=== PATIENT | male | born 1950 | race Caucasian/White ===

== ENCOUNTER 2019-10-28 10:49 | Emergency (ER) | payer OTHER, MEDICARE ==
[~2019-10-28] VITALS: Ht 167.6 cm; Wt 68.0 kg
[2019-10-28] MEDS ORDERED: GABA400 PO (11:08)
[2019-10-28] MEDS ORDERED: ATOR20 PO (11:08)
[2019-10-28] MEDS ORDERED: FERSU300 (11:08)
[2019-10-28] MEDS ORDERED: FINA5 PO (11:08)
[2019-10-28] MEDS ORDERED: GLIP5 PO (11:09)
[2019-10-28] MEDS ORDERED: LOSA50 PO (11:09)
[2019-10-28] MEDS ORDERED: OMEP20ER PO (11:10)
[2019-10-28] MEDS ORDERED: TAMS.4ER PO (11:10)
[2019-10-28] MEDS ORDERED: Nortrel1 EAC2 PO (11:10)
[2019-10-28 11:19] LABS: BASOPHILS ABSOLUTE AUTO 0.06 K/mm3 (0.00-0.23); BASOPHILS PERCENT AUTO 1 % (0-2); EOSINOPHILS ABSOLUTE AUTO 0.48 K/mm3 (0.00-0.68); EOSINOPHILS PERCENT AUTO 4 % (0-6); Hematocrit 43.6 % (37.0-53.0); Hemoglobin 14.5 g/dL (13.5-17.5); IMMATURE GRAN ABSOLUTE AUTO 0.08 K/mm3 (0.00-0.10); IMMATURE GRAN PERCENT AUTO 1 % (0-1); LYMPHOCYTES ABSOLUTE AUTO 2.88 K/mm3 (0.84-5.20); LYMPHOCYTES PERCENT AUTO 24 % (21-46); MONOCYTES ABSOLUTE AUTO 1.06 K/mm3 (0.16-1.47); MONOCYTES PERCENT AUTO 9 % (4-13); Mean Corpuscular HGB 29.7 pg (26.0-34.0); Mean Corpuscular HGB Conc 33.3 g/dL (31.5-36.5); Mean Corpuscular Volume 89 fL (80-100); Mean Platelet Volume 10.2 fL (9.1-12.4); NEUTROPHILS ABSOLUTE AUTO 7.42 K/mm3 (1.96-9.15); NEUTROPHILS PERCENT AUTO 62 % (41-73); Platelet Count 269 K/mm3 (150-400); RDW Standard Deviation 39.1 fL (35.1-46.3); Red Blood Cell Count 4.89 M/mm3 (4.30-5.90); White Blood Cell Count 11.98 K/mm3 (4.00-11.30)
[2019-10-28 11:31] LABS: Alanine Aminotransfer (ALT/SGP 22 U/L (12-78); Albumin, Blood 3.7 g/dL (3.4-5.0); Albumin/Globulin Ratio 1.2 (0.8-1.8); Alk Phos 74 U/L (50-136); Anion Gap 6 mmol/L (6-16); Aspartate Aminotrans (AST/SGOT 9 U/L (12-37); Bilirubin, Total 0.5 mg/dL (0.1-1.0); Blood Urea Nitrogen 16 mg/dL (8-24); Bun/Creatinine Ratio 18.2 (12.0-20.0); CO2, Blood 27 mmol/L (21-32); Chloride, Blood 98 mmol/L (98-108); Creatinine, Blood 0.88 mg/dL (0.60-1.20); Glomerular Filtration Rate >60 (60-); Glucose, Blood 373 mg/dL (70-99); Potassium, Blood 3.8 mmol/L (3.5-5.5); Sodium, Blood 131 mmol/L (136-145); Total Protein, Blood 6.7 g/dL (6.4-8.2)
== END 2019-10-28 13:01 | disposition home or self-care (01) ==
LOC: ER 10:49
PROVIDERS: Emergency Medicine
DX: E11.65 Type 2 diabetes mellitus with hyperglycemia (principal); M25.552 Pain in left hip; Z86.73 Personal history of transient ischemic attack (TIA), and cerebral infarction without residual deficits; Z91.14 Patient's other noncompliance with medication regimen
CPT/HCPCS: 70450; 73502; 80053; 82947; 85025; 93005; 93010; 99285-25

== ENCOUNTER 2021-10-06 13:17 | Observation (INO) | payer OTHER ==
[~2021-10-06] VITALS: Ht 170.2 cm; Wt 65.7 kg
[~2021-10-06 13:17] MED LIST: ATOR20 PO; FERSU300; FINA5 PO; GABA400 PO; GLIP5 PO; LOSA50 PO; Nortrel1 EAC2 PO; OMEP20ER PO; TAMS.4ER PO
[2021-10-06 14:23] LABS: Hematocrit 29.6 % (37.0-53.0); Hemoglobin 10.2 g/dL (13.5-17.5); Mean Corpuscular HGB 29.8 pg (26.0-34.0); Mean Corpuscular HGB Conc 34.5 g/dL (31.5-36.5); Mean Corpuscular Volume 87 fL (80-100); Mean Platelet Volume 10.5 fL (9.1-12.4); Platelet Count 342 K/mm3 (150-400); RDW Coefficient Variation 12.5 % (11.7-14.2); RDW Standard Deviation 39.8 fL (35.1-46.3); Red Blood Cell Count 3.42 M/mm3 (4.30-5.90); White Blood Cell Count 22.44 K/mm3 (4.00-11.30)
[2021-10-06 14:49] LABS: Albumin, Blood 3.7 g/dL (3.4-5.0); Bilirubin, Total 0.7 mg/dL (0.1-1.0); Bun/Creatinine Ratio 23.6 (12.0-20.0); Calcium, Blood 8.8 mg/dL (8.5-10.1); Creatinine, Blood 1.27 mg/dL (0.60-1.20); Globulin, Blood 3.8 g/dL (2.2-4.0); Total Protein, Blood 7.5 g/dL (6.4-8.2)
[2021-10-06 15:11] LABS: BAND PERCENT MAN 2 % (0-8); BASOPHILS ABSOLUTE MAN 0.22 K/mm3 (0.00-0.23); BASOPHILS PERCENT MAN 1 % (0-2); EOSINOPHILS PERCENT MAN 0 % (0-6); LYMPHOCYTES % ATYPICAL MANUAL 1 % (0-0); LYMPHOCYTES ABSOLUTE MAN 1.79 K/mm3 (0.84-5.20); LYMPHOCYTES PERCENT MAN 7 % (21-46); MONOCYTES ABSOLUTE MAN 2.01 K/mm3 (0.16-1.47); MONOCYTES PERCENT MAN 9 % (4-13); SEG NEUTROPHILS PERCENT MAN 80 % (41-73); TOTAL CELLS COUNTED 100
--- NOTE | 2021-10-06 19:22 | NUR ---
ADMIT NOTE PATIENT NEW ADMIT TO UNIT FROM ER. R HUMERUS FRACTURE. PATIENT FELL AT HOME 3 DAYS AGO. DROWSY ON ARRIVAL TO ROOM. RIGHT ARM IN SLING. BRUISED FROM SHOULDER TO ELBOW. MEDICATED FOR PAIN WITH IV TORADOL. LR FLUID RUNNING AT 125 HR. PROVIDED WATER AND TOOTHBRUSH. PARTNER PRESENT IN ROOM. PER DR GOODE PATIENT CAN EAT AND NO SURGERY IS PLANNED AT THIS TIME.
--- NOTE | 2021-10-07 04:42 | NUR ---
SHIFT SUMMARY NO ACUTE CHANGES TO REPORT THIS SHIFT. PT CHANGE OF SHIFT ADMIT FOR GLF THAT RESULTED IN A RIGHT HUMERUS FRACTURE. PT ARM CURRENTLY IN SLING, THERE IS SOME BRUSING TO THE UPPER PORTION OF ARM. PT IS NOT COMPLAINING OF N/T, PT DENIES PAIN WHEN ASKED. PT A/OX4, SLEEPY BUT AWAKES EASILY. HEAD CT ORDERED THIS SHIFT AND HAS BEEN PERFORMED. EKG DONE. DR. GOODE NOT RECOMMENDING SURGERY AT THIS TIME. VITALS STABLE. ADMISSION COMPLETE ASIDE FROM [facility], THEIR [facility] WAS DOWN YESTERDAY AND THEY WERE UNABLE TO SEND RECORDS. WILL NOTIFY DAYSHIFT RN FOR FOLLOW UP. BED IN LOWEST POSITION, CALL LIGHT WITHIN REACH.
--- NOTE | 2021-10-07 04:58 | NUR ---
FALL AROUND 0450 THIS AM PT HAD A GROUND LEVEL FALL WHILE AMBULATING TO THE BATHROOM IN AN ATTEMPT TO VOID. I WAS ASSISTING PT TO THE BATHROOM AND WAS STANDING AT HIS SIDE. PT BEGAN TO GET WOBBLY, BEFORE I COULD ASSIST HIM TO SIT DOWN PT LEGS GAVE OUT AND HE FELL ON HIS BOTTOM. IT APPEARED THAT PT MAY HAVE HAD A SYNCOPAL EPISODE. I WAS UNABLE TO FULLY STOP THE FALL BUT GRABBED AHOLD OF PT GOWN HE WAS FALLING TO TRY AND SOFTEN THE FALL. PT LANDED ON HIS BOTTOM AND WAS SITTING UPWARDS AGAINST THE SHOWER. PT DID NOT HIT HIS HEAD OR FURTHER INJURE HIS RIGHT ARM IN SLING. THERE ARE NO SKIN INJURIES ASSESSED. AFTER FALL PT REPORTED TO ME THAT HE HAS HAD THIS HAPPEN BEFORE AT HOME. PT DID NOT REPORT A HX OF SYNCOPE TO THIS RN AND IT IS NOT MENTIONED IN ANY OTHER NOTES IN CHART. PRIOR TO FALL PT HAD AMBULATED TO A WHEELCHAIR TO GO TO IMAGING WITHOUT DIFFICULTY AND WAS A SBA. VITALS OBTAINED AFTER FALL WERE STABLE. PT ASSISTED UP WITH WALKER AND GAIT BELT BACK TO BED. PT CONTINUED TO REPORT DIZZINESS BUT OTHERWISE HAD NO OTHER COMPLAINTS. MARKET DEVELOPER ANG AND NURSING TOUR OPERATOR EVELYN MADE AWARE OF OF FALL. DR. NCIOLAS CALLED AND NOTIFIED OF FALL WITH NO ADDITIONAL ORDERS GIVEN. HE STATES JUST TO WATCH FOR NOW. PT IS RESTING IN BED AT THIS TIME WITH NO COMPLAINTS. WILL CONTINUE TO MONITOR.
[2021-10-07 05:21] LABS: BASOPHILS ABSOLUTE AUTO 0.04 K/mm3 (0.00-0.23); BASOPHILS PERCENT AUTO 0 % (0-2); EOSINOPHILS PERCENT AUTO 1 % (0-6); Hematocrit 25.8 % (37.0-53.0); Hemoglobin 8.6 g/dL (13.5-17.5); IMMATURE GRAN ABSOLUTE AUTO 0.07 K/mm3 (0.00-0.10); IMMATURE GRAN PERCENT AUTO 1 % (0-1); LYMPHOCYTES ABSOLUTE AUTO 2.99 K/mm3 (0.84-5.20); LYMPHOCYTES PERCENT AUTO 25 % (21-46); MONOCYTES ABSOLUTE AUTO 1.15 K/mm3 (0.16-1.47); MONOCYTES PERCENT AUTO 10 % (4-13); Mean Corpuscular HGB 29.4 pg (26.0-34.0); Mean Corpuscular HGB Conc 33.3 g/dL (31.5-36.5); Mean Corpuscular Volume 88 fL (80-100); Mean Platelet Volume 10.3 fL (9.1-12.4); NEUTROPHILS ABSOLUTE AUTO 7.62 K/mm3 (1.96-9.15); NEUTROPHILS PERCENT AUTO 64 % (41-73); Platelet Count 317 K/mm3 (150-400); RDW Coefficient Variation 12.4 % (11.7-14.2); RDW Standard Deviation 40.3 fL (35.1-46.3); Red Blood Cell Count 2.93 M/mm3 (4.30-5.90); White Blood Cell Count 11.97 K/mm3 (4.00-11.30)
[2021-10-07 05:53] LABS: Bilirubin, Total 0.8 mg/dL (0.1-1.0); Bun/Creatinine Ratio 27.2 (12.0-20.0); Calcium, Blood 8.5 mg/dL (8.5-10.1); Creatinine, Blood 1.25 mg/dL (0.60-1.20); Potassium, Blood 3.9 mmol/L (3.5-5.5)
--- NOTE | 2021-10-07 07:18 | NUR ---
BLADDER SCAN PT HAD OVER 600 MLS IN HIS BLADDER THIS AM. PT HAD NOT VOIDED ALL NIGHT, PT ATTEMPTED TO VOID THIS AM WITHOUT SUCCESS STATING THAT HE DID NOT HAVE THE URGE. DR. TSANG CALLED AND NOTIFIED. ORDER FOR STRAIGHT CATH AND BLADDER SCAN AFTER 8 HOURS. PT STRAIGHT CATH BY CONCRETE CONVEYOR OPERATOR, CATH IS DRAINING AT THIS TIME.
[2021-10-07 08:18] LABS: Source, Urine Voided
[2021-10-07 08:24] LABS: Appearance, Urine Clear (Clear); Bilirubin, Urine Neg (Neg); Blood, Urine Neg (Neg); Color, Urine Yellow (P-Yellow); Glucose Qualitative, Urine 4+ (Neg); Ketones, Urine 3+ (Neg); Leukocyte Esterase, Urine Neg (Neg); Nitrite, Urine Neg (Neg); Protein, Urine 2+ (Neg); Urobilinogen, Urine NORM (Normal)
[2021-10-07 08:36] LABS: Bacteria Rare /hpf; Red Blood Cells, Urine 0-2 /hpf (0-2); Squamous Epithelial Cells Rare /hpf (Few); White Blood Cells, Urine 0-2 /hpf (0-5)
--- NOTE | 2021-10-07 11:37 | NUR ---
[facility] CONTACT[facility]POR[facility] AND HOME MEDICATION LIST.
[2021-10-07] MEDS ORDERED: B-12500 MC2 PO (11:44)
[2021-10-07] MEDS ORDERED: METF500 PO (11:48)
[2021-10-07 13:07] LABS: Hematocrit 27.7 % (37.0-53.0); Hemoglobin 9.3 g/dL (13.5-17.5)
--- NOTE | 2021-10-07 17:40 | NUR ---
SHIFT SUMMARY PT REMAINS IN THE HOSPITAL FOR MORE PHYSICAL THERAPY AND R/T JAEL. PT HAS BEEN OOB WITH THERAPY. PT IS HOPING FOR DC HOME TOMORROW. PAIN MANAGED WITH TYLENOL. PT ABLE TO VOID THIS AFTERNOON. UPDATED HOME MED REC [facility] LIST FROM [facility], PT REPORTS SOME MEDICATIONS ARE MISSING FROM THAT LIST. TOMI OCONNOR NOTIFIED OF MISSING MEDICATIONS, PLAN TO CONTACT PT'S REGARDING HOME MED LIST.
[2021-10-07] MEDS ORDERED: TAMS.4ER PO (17:51)
[2021-10-07] MEDS ORDERED: NORTRIPTYLINE H PO (17:52)
[2021-10-07] MEDS ORDERED: INSULANI SC (17:53)
--- NOTE | 2021-10-08 01:33 | NUR ---
CHECKED PT FOR SURGICAL NURSE IN CARE OF PT AND CALLED DR TSANG REGARDING PT C/O INCREASED PAIN R SHOULDER,LARGELY NOTED HEMATOMA-PT ON LOVENOX AND APPEARS THERE HAS BEEN BLEEDING INTO SHOULDER AREA.PT HAS C/O TINGLING TO R FINGERS,ABLE TO WIGGLE FINGERS.R RADIAL PULSE STRONG WITH REFILL WNL.TORADOL PREVIOUSLY ORDERED FOR PAIN.HOWEVER,PT HAS SLIGHTLY BUMPED CREATININE WITH JAEL,GFR WNL.PT CARE NURSE NOTED THAT PT RECEIVED BOTH DILAUDID IM AND IV IN ER AND DID NOT TOLERATE WELL.NOTES MENTION TRYING TO AVOID NARGOTICS,HOWEVER PT HAS CONTINUIED C/O SIGNIFICANT PAIN AND WAS GIVEN SUBLIMAZE PER NEW ORDER AND FOR BRIEF PERIOD ONLY REPORTED EFFCTIVE.DR TSANG ORDERED NORCO AND INSTRUCTED ME TO NOTIFY ORTHO.PT REPOSITIONED AND HOB UP. SLING ADJUSTED. SHOULDER ICED.
--- NOTE | 2021-10-08 02:03 | NUR ---
I CALLED DR GOODE AND ADVISED OF ASSESSMENT AND MEDS GIVEN.SEE ORDERS RECEIVED .
--- NOTE | 2021-10-08 03:13 | NUR ---
INCREASED PAIN R SHOULDER PT BEGAN COMPLAINING OF INCREASED PAIN IN RIGHT SHOULDER CLOSE TO 2300 WELL NEW COMPLAINTS OF TINGLING IN RIGHT HAND. RADIAL PULSE IS STRONG, HAND IS WARM AND PT ABLE TO WIGGLE FINGERS. DR. NICOLAS CALLED AND NOTIFIED OF PT NEW COMPLAINTS. RECEIVED ORDER FOR IV FENTANYL WHICH DID VERY LITTLE TO RELIEVE PT PAIN. ICE ALSO APPLIED TO HELP ALLEVIATE PAIN WITH VERY LITTLE EFFECT. DR. TSANG CALLED AND NOTIFIED THAT FENTANYL AND ICE HAS BEEN INEFFECTIVE FOR PAIN CONTROL. DR. TSANG RECOMMENDED THAT WE CALL ORTHO PLATE GRAINER APPRENTICE FOR FURTHER MANAGEMENT OF PT SYMPTOMS. DR. GOODE CALLED AND NOTIFIED OF PT INCREASED PAIN IN SHOULDER WELL NEW COMPLAINT OF TINGLING. NOTIFIED HIM THAT PAIN MEDICATIONS PER EMAR HAVE BEEN INEFFECTIVE FOR PAIN CONTROL. HE ORDERED FOR US TO REMOVE RIGHT ARM SLING, AND STATES THAT IS IS OK FOR PT TO SLIGHTLY EXTEND RIGHT ARM TO HELP ALLEVIATE PAIN. DR. GOODE STATES OK TO LEAVE SLING OFF WHILE IN BED, AND TO APPLY SLING WHEN UP AND AMBULATING. OXYCODONE ORDERED AND NORCO DC'D FOR BETTER PAIN CONTROL. DR. GOODE DID NOT GIVE ANY ADDITIONAL ORDERS, AND WILL REEVALUATE PT LATER. AFTER REMOVING SLING, AND MEDICATING WITH NORCO, PT NOW REPORTS THAT PAIN HAS SIGNIFICANTLY IMPROVED FROM A 9/1O TO 3/1O. ICE REMAINS IN PLACE TO RIGHT SHOULDER PER DR. GOODE INSTRUCTIONS. PT ATTEMPTING TO REST AT THIS TIME. WILL CONTINUE TO MONITOR.
[2021-10-08 04:30] LABS: Hematocrit 23.5 % (37.0-53.0); Hemoglobin 7.9 g/dL (13.5-17.5); Mean Corpuscular HGB 29.4 pg (26.0-34.0); Mean Corpuscular HGB Conc 33.6 g/dL (31.5-36.5); Mean Corpuscular Volume 87 fL (80-100); Mean Platelet Volume 10.4 fL (9.1-12.4); Platelet Count 356 K/mm3 (150-400); RDW Coefficient Variation 12.2 % (11.7-14.2); RDW Standard Deviation 39.3 fL (35.1-46.3); Red Blood Cell Count 2.69 M/mm3 (4.30-5.90); White Blood Cell Count 18.36 K/mm3 (4.00-11.30)
[2021-10-08 04:49] LABS: Albumin, Blood 3.2 g/dL (3.4-5.0); Anion Gap 8 mmol/L (6-16); Blood Urea Nitrogen 26 mg/dL (8-24); Bun/Creatinine Ratio 35.7 (12.0-20.0); CO2, Blood 28 mmol/L (21-32); Calcium, Blood 8.8 mg/dL (8.5-10.1); Chloride, Blood 97 mmol/L (98-108); Creatinine, Blood 0.73 mg/dL (0.60-1.20); Glomerular Filtration Rate 97 (60-); Glucose, Blood 289 mg/dL (70-99); Phosphorus, Blood 3.2 mg/dL (2.5-4.9); Potassium, Blood 4.5 mmol/L (3.5-5.5); Sodium, Blood 133 mmol/L (136-145)
--- NOTE | 2021-10-08 05:31 | NUR ---
SHIFT SUMMARY PT HAS HAD A ROUGH NIGHT, PAIN HAS INCREASED IN HIS RIGHT ARM OVERNIGHT, HE REPORTS THAT PAIN IS EVEN WORSE THAN BEFORE HE CAME IN. DR. GOODE AND HOSPITALIST HAVE BEEN MADE AWARE OF PAIN, AND MEDICATIONS FOR PAIN HAVE BEEN ADJUSTED ACCORDINGLY. PLEASE SEE PRIOR NURSES NOTE. BRUSING TO RIGHT SHOULDER UNCHANGED, SENSATION PRESENT TO RIGHT HAND AND PT ABLE TO WIGGLE FINGERS. AT THIS TIME, PAIN IS MANAGED AND HE HAS BEEN ABLE TO GET SOME SLEEP THIS AM. PT HAS BEEN VOIDING THIS SHIFT WITHOUT DIFFICULTY. IVF HAVE INFUSED. SLING TO RIGHT ARM HAS BEEN REMOVED PER DR. GOODE AND ICE PACK IN PLACE. VITALS ARE STABLE. BED IN LOWEST POSITION, CALL LIGHT WITHIN REACH.
--- NOTE | 2021-10-08 06:35 | NUR ---
CHANGE IN STATUS R ARM PT HAD BEEN A/OX4 T/O SHIFT AND SHOWED NO SIGNS OF CONFUSION. WHEN I ENTERED ROOM TO CHECK ON PT AROUND 0620 HE WAS ORIENED TO LOCATION AND SELF HOWEVER INAPPROPRIATE TO SITUATION GETTING OUT OF BED STATING SAID HE COULD GO HOME AND WAS ATTEMPTING TO GET DRESSED TO LEAVE. PT APPEARING UNSTEADY ON FEET I IMMEDIATLEY WENT TO PT SIDE. I WAS UNABLE TO CONVIENCE PT TO SIT BACK ON BED. PT BEGAN TO WOBBLE, I AVERTED POTENTIAL FALL BY LOWERING PT TO FLOOR, AND SUMMONED ADDITIONAL STAFF TO ASSIST PT BACK TO BED SAFELY. PT NOW RESTING IN BED. SEE VITALS, ORTHOSTATIC BP NOTED. RIGHT ARM WITH INCREASED BRUSING AND APPEARS EXPANDING AND TIGHTER, DR. GOODE MADE AWARE EARLIER IN THE SHIFT THAT CONDTION OF PT ARM HAD BEEN WORSENING. RADIAL PULSE PRESENT, STRONG. PT NOW DENIES N/T. NURSING CHAIR PAD MAKER TORI BERNAL NOTIFIED OF INCIDENT, AND MANAGER INVESTMENT ANG VARGAS ALSO NOTIFIED. DR. GOODE NOTIFED OF APPEARANCE OF ARM THIS AM, MORNING LABS H&H 7.9 AND HCT 23.5. ALSO NOTIFIED OF HIM OF PT CONFUSION TO SITUATION. ORDERED FOR CYNTHIA WRAP TO ARM AND SHOULDER. DR. GOODE STATES THAT HE WOULD BE IN THIS AM TO ROUND ON PT. BED ALARM IN PLACE, THREE SIDE RAILS IN PLACE. ANOTHER STAFF NURSE AT BEDSIDE CURRENTLY MONITORING PT.
--- NOTE | 2021-10-08 07:23 | NUR ---
CYNTHIA WRAP APPLIED PER DR. GOODE'S REQUEST TO R UPPER ARM AND SHOULDER. R ARM IS SWOLLEN AND BRUISED. BRUSING IS PURPLE/YELLOW. RADIAL PULSE IS STRONG. PT ABLE TO WIGGLE HIS FINGERS.
[2021-10-08] MEDS ORDERED: Percocet 5-3251 EACH PO (10:25)
[2021-10-08 13:03] LABS: BASOPHILS ABSOLUTE AUTO 0.04 K/mm3 (0.00-0.23); BASOPHILS PERCENT AUTO 0 % (0-2); EOSINOPHILS ABSOLUTE AUTO 0.01 K/mm3 (0.00-0.68); EOSINOPHILS PERCENT AUTO 0 % (0-6); Hematocrit 22.4 % (37.0-53.0); Hemoglobin 7.5 g/dL (13.5-17.5); IMMATURE GRAN ABSOLUTE AUTO 0.09 K/mm3 (0.00-0.10); IMMATURE GRAN PERCENT AUTO 1 % (0-1); LYMPHOCYTES ABSOLUTE AUTO 2.07 K/mm3 (0.84-5.20); LYMPHOCYTES PERCENT AUTO 16 % (21-46); MONOCYTES ABSOLUTE AUTO 1.01 K/mm3 (0.16-1.47); MONOCYTES PERCENT AUTO 8 % (4-13); Mean Corpuscular HGB 29.4 pg (26.0-34.0); Mean Corpuscular HGB Conc 33.5 g/dL (31.5-36.5); Mean Corpuscular Volume 88 fL (80-100); Mean Platelet Volume 10.1 fL (9.1-12.4); NEUTROPHILS ABSOLUTE AUTO 10.06 K/mm3 (1.96-9.15); NEUTROPHILS PERCENT AUTO 76 % (41-73); Platelet Count 343 K/mm3 (150-400); RDW Coefficient Variation 12.3 % (11.7-14.2); RDW Standard Deviation 39.8 fL (35.1-46.3); Red Blood Cell Count 2.55 M/mm3 (4.30-5.90); White Blood Cell Count 13.28 K/mm3 (4.00-11.30)
[2021-10-08 14:55] LABS: IMMATURE RETIC FRACTION 12.4 % (2.3-16.0); RETIC HGB EQUIVALENT 31.3 pg (28.20-36.60); RETICULOCYTE COUNT PERCENT 2.46 % (0.50-2.50)
[2021-10-08 16:01] LABS: Percent Saturation 7.5 % (20.0-50.0)
--- NOTE | 2021-10-08 18:26 | NUR ---
SHIFT SUMMARY PT REMAINS IN THE HOSPITAL R/T APPARENT NEAR SYNCOPE WHEN OOB. PT SAT UP TO THE EDGE OF THE BED THIS AM AND WAS UNABLE TO HOLD HIMSELF IN A SITTING POSTION WITHOUT ASSISTANCE. SWELLING APPEARS INCREASED TO PT'S LOWER ARM AND THERE APPEARS TO BE SOME DARK PURPLE BRUISING TO THE UPPER ARM/ARMPIT AREA. PT HAS EXPRESSED FRUSTRATION ABOUT REMIANING IN THE HOSPITAL BUT HAS AGREED TO REMAIN OVERNIGHT AFTER DR. AUGUSTIN SPOKE WITH THE PT AND HIS . PT IS TOLERATING PO, DRINKING AND ABLE TO VOID. MONITORING H&H. PT REQUESTED A SHOWER TODAY; HE WAS EDUCATED THAT THIS IS UNSAFE SINCE HE HAS BEEN UNABLE TO SIT MUCH LESS STAND. PT HAS BEEN OFFERED A BEDBATH AND DECLINED OFFER FROM THIS RN AND AISHA CAR. WILL MONITOR UNTIL REPORT TO AMRIK OCONNOR.
[2021-10-08 20:23] LABS: Hematocrit 22.2 % (37.0-53.0); Hemoglobin 7.6 g/dL (13.5-17.5)
[2021-10-09 05:10] LABS: Hematocrit 22.5 % (37.0-53.0); Hemoglobin 7.4 g/dL (13.5-17.5); Mean Corpuscular HGB 29.1 pg (26.0-34.0); Mean Corpuscular HGB Conc 32.9 g/dL (31.5-36.5); Mean Corpuscular Volume 89 fL (80-100); Platelet Count 365 K/mm3 (150-400); RDW Coefficient Variation 12.3 % (11.7-14.2); Red Blood Cell Count 2.54 M/mm3 (4.30-5.90); White Blood Cell Count 11.02 K/mm3 (4.00-11.30)
--- NOTE | 2021-10-09 05:54 | NUR ---
SHIFT SUMMARY A/O X3. NO ACUTE CHANGES OVER NIGHT. R ARM IN SLING AND CYNTHIA WRAP. VITAL SIGNS STABLE. H&H STABILIZED. VOIDING WELL AND TOLERATING PO INTAKE. NO PAIN MEDS GIVEN THROUGHOUT THE NIGHT. WILL CONTINUE TO MONITOR AND REPORT TO ONCOMING RN.
--- NOTE | 2021-10-09 09:32 | NUR ---
PHYSICAL THERAPY ATTEMPTED TO WORK WITH PATIENT THIS AM, REPORTED DIZZINESS AND UNABLE TO SIT HIMSELF UP T THE EDGE OF THE BED. ORTHOSTATIC BLOOD PRESSURE OBTAINED, 136/44 WITH HEART RATE OF 108 LYING, 91/41 WITH HEART RATE OF 124 SITTING AT THE EDGE OF BED. MD CALLED, SPOKE WITH DR. GANDHI, NO NEW ORDERS GIVEN AT THIS TIME.
--- NOTE | 2021-10-09 16:30 | NUR ---
DR GANDHI AT BEDSIDE TO SEE PATIENT ATFER COMPLETEION OF BLOOD TRANSFUSION. PATIENT FELT THAT HE COULD AMBULATE AND REPORTED FEELING BETTER. THIS RN & REBAR WORKER GOT PATIENT TO EDGE OF BED, PATIENT DENIED ALL SYMPTOMS OF DIZZINESS/LIGHTHEADEDNESS. PATIENT AMBULATED TO DOORWAY W/ 4 POINT CANE & GB, 1P MINIMAL ASSIST. PATIENT TURNED AROUND TO RETURN TO ROOM & HIS KNEES BEGN TO GET WEAK AND BUCKLE IN, 2 STAFF ASSISTED WITH GAIT BELT AND CANE BACK TO BED, MAX/TOTAL ASSIST. DR GANDHI WITNESSED & DISCUSSED RISKS OF FALING IF PTIENT WERE TO DISCHARGE HOME. PATIENT REPORTED HE "FELT FINE, JUST GETS WEAK SOMETIMES". DENIED BEING DIZZY, LIGHTHEADED, OR SOB WHILE AMBULATING. DR GANDHI STATED HE WOULD DISCUSS WITH HIS ATTENDING PHYSICAN DR AUGUSTIN AND RETURN.
[2021-10-09 16:36] LABS: Hematocrit 19.2 % (37.0-53.0); Hemoglobin 6.2 g/dL (13.5-17.5)
--- NOTE | 2021-10-09 17:00 | NUR ---
DR AUGUSTIN & DR GANDHI IN ROOM TO DISCUSS DISCHARGE WITH PATIENT, THIS RN AT BEDSIDE WELL. MD'S DISCUSSED WITH PATIENT AND PATIENTS SPOUSE THAT DISCHARGE IS UNSAFE AT THIS TIME DUE TO PATIENTS WEAKNESS WHEN WALKING AND SITTING AT EDGE OF BED. PATIENT STATES "I'LL DO BETTER AT HOME" & IS ADIMENT ABOUT DISCHARGING. MD'S ADVISED PATIENT THAT THEY RECOMMEND HE STAY FOR PHSYICAL THERAPY TREATMENT, RESULTS OF H&H, AND POSSIBLY ARRANGE HOME HEALTH TO HELP GAIN STRENGTH & WITH THERAPY FOR HIS R ARM UNTIL HE FOLLOWS UP WITH DR GOODE OUTPATIENT. PATIENT CONTINUES TO STATE "I CAN DO BETTER AT HOME, I'LL BE OKAY". PATIENTS FEELS THAT PATIENT WILL BE OKAY AT HOME AND THAT SHE IS THERE TO HELP HIM WELL & WAS AGREEABLE WITH PATIENT THAT HE WILL "BE BETTER AT HOME". MD EDUCATED PATIENT THAT IT IS ULTIMATEY HIS DECISION AND IF HE CHOOSES TO LEAVE, HE MAY. AFTER MD LEFT, HE REPORTED TO THIS RN THAT THE PATIENT MAY SIGN AN AMA FORM AND LEAVE IF HE STILL CHOOSES TO DO SO. THIS RN DISCUSSED WITH PATIENT THE RISKS IN HIS CURRENT STATE OF LEAVING AMA WHICH INCLUDE, FALLING, INJURIES RELATED TO FALLS, SYNCOPE, & UNSTABLE HGB&HCT RELATINIG TO A POSSIBLE BLEED. THIS RN READ THE AMA FORM WORD FOR WORD TO THE PATIENT & HE VERBALLY AGREED AND SIGNED THE FORM, THIS RN WITNESSED. DR GANDHI THEN RETURNED TO THE ROOM & REPORTED THAT THE PATIENTS HGB CAME BACK AT 6.2, WHICH WAS LOWER THAN HIS HGB THIS AM (7.4) BEFORE 1 UNIT OF PRBC WAS INFUSED. MD AGAIN EXPLAINED THE RISKS THAT HE MAY HAVE A BLEED & WOULD LIKE THE PATIENT TO STAY TO GET TREATMENT. PATIENT STATED HE UNDERSTOOD THE RISKS AND SAID "I'LL BE OKAY AT HOME, I'M GOING HOME. I WILL DO BETTER AT HOME". PATIENT GOT DRESSED WITH HELP FROM HIS SPOUSE & LEFT IN W/C.
== END 2021-10-09 17:02 | disposition left against medical advice (07) ==
LOC: ER 13:17 → SURS 13:18
PROVIDERS: Emergency Medicine; Family Medicine; ADMIT Hospitalist
DX: S42.291A Other displaced fracture of upper end of right humerus, initial encounter for closed fracture (principal); E78.5 Hyperlipidemia, unspecified; E11.65 Type 2 diabetes mellitus with hyperglycemia; D72.829 Elevated white blood cell count, unspecified; G92.8 Other toxic encephalopathy; N17.9 Acute kidney failure, unspecified; R54 Age-related physical debility; D50.0 Iron deficiency anemia secondary to blood loss (chronic); I10 Essential (primary) hypertension; N40.0 Benign prostatic hyperplasia without lower urinary tract symptoms; I95.1 Orthostatic hypotension; W18.30XA Fall on same level, unspecified, initial encounter; Z79.899 Other long term (current) drug therapy
CPT/HCPCS: 36415; 36430; 51702; 70450; 71045; 80053; 80069; 81001; 82550; 82607; 82728; 82746; 82947; 83036; 83540; 83550; 85014; 85018; 85025; 85027; 85045; 86850; 86900; 86901; 86923; 93005; 93010; 96361; 96372; 96374; 96375; 97110; 97116; 97161; 97166; 97530; 99285-25; A9270; G0378; J1650; J1815; J1885; J3010; J7120; P9016

== ENCOUNTER 2021-10-30 12:36 | Inpatient (IN) | payer OTHER, MEDICARE ==
[~2021-10-30] VITALS: Ht 167.6 cm; Wt 65.8 kg
[~2021-10-30 12:36] MED LIST changes: +B-12500 MC2 PO; +INSULANI SC; +METF500 PO; +NORTRIPTYLINE H PO; +Percocet 5-3251 EACH PO
[2021-10-30 13:34] LABS: BASOPHILS ABSOLUTE AUTO 0.03 K/mm3 (0.00-0.23); BASOPHILS PERCENT AUTO 0 % (0-2); EOSINOPHILS PERCENT AUTO 0 % (0-6); Hematocrit 36.6 % (37.0-53.0); Hemoglobin 12.1 g/dL (13.5-17.5); IMMATURE GRAN ABSOLUTE AUTO 0.11 K/mm3 (0.00-0.10); IMMATURE GRAN PERCENT AUTO 1 % (0-1); LYMPHOCYTES ABSOLUTE AUTO 2.11 K/mm3 (0.84-5.20); LYMPHOCYTES PERCENT AUTO 10 % (21-46); MONOCYTES ABSOLUTE AUTO 1.61 K/mm3 (0.16-1.47); MONOCYTES PERCENT AUTO 7 % (4-13); Mean Corpuscular HGB 29.5 pg (26.0-34.0); Mean Corpuscular HGB Conc 33.1 g/dL (31.5-36.5); Mean Corpuscular Volume 89 fL (80-100); Mean Platelet Volume 10.3 fL (9.1-12.4); NEUTROPHILS ABSOLUTE AUTO 17.93 K/mm3 (1.96-9.15); NEUTROPHILS PERCENT AUTO 82 % (41-73); Platelet Count 576 K/mm3 (150-400); RDW Coefficient Variation 15.1 % (11.7-14.2); RDW Standard Deviation 49.1 fL (35.1-46.3); White Blood Cell Count 21.79 K/mm3 (4.00-11.30)
[2021-10-30 14:21] LABS: Albumin, Blood 4.1 g/dL (3.4-5.0); Albumin/Globulin Ratio 1.1 (0.8-1.8); Bilirubin, Total 0.8 mg/dL (0.1-1.0); Bun/Creatinine Ratio 39.7 (12.0-20.0); Calcium, Blood 9.7 mg/dL (8.5-10.1); Creatinine, Blood 1.16 mg/dL (0.60-1.20); Globulin, Blood 3.8 g/dL (2.2-4.0); Potassium, Blood 4.8 mmol/L (3.5-5.5); Total Protein, Blood 7.9 g/dL (6.4-8.2)
[2021-10-30] MEDS ORDERED: HYDR1TAB94 PO (14:53)
[2021-10-30 15:15] LABS: Source, Urine Foley catheter
[2021-10-30 15:18] LABS: Appearance, Urine Clear (Clear); Bilirubin, Urine Neg (Neg); Blood, Urine Neg (Neg); Color, Urine Yellow (P-Yellow); Glucose Qualitative, Urine 4+ (Neg); Ketones, Urine 1+ (Neg); Leukocyte Esterase, Urine Neg (Neg); Nitrite, Urine Neg (Neg); Protein, Urine Neg (Neg); Urobilinogen, Urine NORM (Normal)
[2021-10-31 05:14] LABS: BASOPHILS ABSOLUTE AUTO 0.04 K/mm3 (0.00-0.23); BASOPHILS PERCENT AUTO 0 % (0-2); EOSINOPHILS PERCENT AUTO 1 % (0-6); Hematocrit 32.5 % (37.0-53.0); Hemoglobin 10.6 g/dL (13.5-17.5); IMMATURE GRAN ABSOLUTE AUTO 0.11 K/mm3 (0.00-0.10); IMMATURE GRAN PERCENT AUTO 1 % (0-1); LYMPHOCYTES ABSOLUTE AUTO 2.34 K/mm3 (0.84-5.20); LYMPHOCYTES PERCENT AUTO 14 % (21-46); MONOCYTES ABSOLUTE AUTO 1.23 K/mm3 (0.16-1.47); MONOCYTES PERCENT AUTO 7 % (4-13); Mean Corpuscular HGB 29.2 pg (26.0-34.0); Mean Corpuscular HGB Conc 32.6 g/dL (31.5-36.5); Mean Corpuscular Volume 90 fL (80-100); Mean Platelet Volume 10.3 fL (9.1-12.4); NEUTROPHILS ABSOLUTE AUTO 12.79 K/mm3 (1.96-9.15); NEUTROPHILS PERCENT AUTO 77 % (41-73); Platelet Count 406 K/mm3 (150-400); RDW Standard Deviation 49.4 fL (35.1-46.3); Red Blood Cell Count 3.63 M/mm3 (4.30-5.90); White Blood Cell Count 16.61 K/mm3 (4.00-11.30)
[2021-10-31 05:38] LABS: Albumin, Blood 3.2 g/dL (3.4-5.0); Albumin/Globulin Ratio 1.1 (0.8-1.8); Bilirubin, Total 0.7 mg/dL (0.1-1.0); Bun/Creatinine Ratio 44.7 (12.0-20.0); Calcium, Blood 8.6 mg/dL (8.5-10.1); Creatinine, Blood 0.63 mg/dL (0.60-1.20); Total Protein, Blood 6.2 g/dL (6.4-8.2)
--- NOTE | 2021-10-31 06:02 | NUR ---
SHIFT SUMMARY NOC: PT HAS VERDE IN PLACE DRAINING CLEAR YELLOW URINE. PT HAS RIGHT UPPER ARM FX IN SLING, MILD EDEMA AND BRUISING TO RIGHT ARM/SHOULDER AREA. PT HAS FECAL IMPACTION, HAVING PAIN TO ANUS, UNABLE TO HAVE BOWEL MOVEMENT. BOWEL CARE PROTOCOL ORDERED.
[2021-11-01 04:46] LABS: Hematocrit 34.5 % (37.0-53.0); Hemoglobin 11.2 g/dL (13.5-17.5); Mean Corpuscular HGB 29.4 pg (26.0-34.0); Mean Corpuscular HGB Conc 32.5 g/dL (31.5-36.5); Mean Corpuscular Volume 91 fL (80-100); Mean Platelet Volume 10.2 fL (9.1-12.4); Platelet Count 368 K/mm3 (150-400); RDW Coefficient Variation 14.7 % (11.7-14.2); Red Blood Cell Count 3.81 M/mm3 (4.30-5.90); White Blood Cell Count 13.24 K/mm3 (4.00-11.30)
[2021-11-01 05:07] LABS: Albumin/Globulin Ratio 0.9 (0.8-1.8); Bilirubin, Total 0.7 mg/dL (0.1-1.0); Bun/Creatinine Ratio 34.4 (12.0-20.0); Calcium, Blood 8.5 mg/dL (8.5-10.1); Creatinine, Blood 0.55 mg/dL (0.60-1.20); Globulin, Blood 3.2 g/dL (2.2-4.0); Potassium, Blood 3.8 mmol/L (3.5-5.5); Total Protein, Blood 6.2 g/dL (6.4-8.2)
--- NOTE | 2021-11-01 07:32 | NUR ---
PATIENT STILL HAS NOT HAD SIGNIFICANT BM SINCE 10/27. SCREAMING AND CRYING UNTIL WELL AFTER HS. MEDICATED TWICE WITH NORCO AND ONCE WITH FENTANYL WITH SOME RELIEF TO ABDOMINAL PAIN. PATIENT STATES HE IS UNABLE TO DO ANY WALKING HE IS TOO WEAK SINCE HIS FALL WHEN HE FX HIS ARM. ASKED FOR CAFFIENATED DRINK, AND WAS AMMENABLE TO JUICE AND WATER INSTEAD TO ADD SOME BENEFICIAL HYDRATION WHICH MIGHT HELP HIS BOWELS. PATIENT ALSO RECEIVED ANOTHER DOSE OF MILK OF MAG, AND TOOK HIS MEDS WITIH PRUNE JUICE. AGAIN ENCOURAGED HIM TO ASK FOR HELP TO GET OOB AND DO SOME AMBULATING. EVEN IN THE ROOM
--- NOTE | 2021-11-01 17:48 | NUR ---
AOX4, COOPERATIVE WITH MEDICATIONS AND CARE. 1-PERSON ASST WITH FWW. PT HAD PAIN EARIER TODAY OF 9/10, PRN PAIN MEDS GIVEN, WITH SOME RELIEF. PT FINALLY HAD LARGE BM AROUND 12PM, WHICH GREATLY REDUCED HIS PAIN. PT STATES THAT HE IS "FEELING MUCH BETTER" AND WANTED RN TO CALL MD FOR D/C ORDERS; MD WAS INFORMED OF PATIENTS WISHES, HOWEVER HE WILL BE HERE FOR ONE MORE NIGHT PENDING LABS AND PT EVAL. NO ACUTE CHNGES. CALL-LIGHT WITHINN REACH; BED IN LOWEST POSITION.
[2021-11-01 17:51] LABS: Albumin, Blood 2.8 g/dL (3.4-5.0); Albumin/Globulin Ratio 0.8 (0.8-1.8); Bilirubin, Total 0.4 mg/dL (0.1-1.0); Creatinine, Blood 0.51 mg/dL (0.60-1.20); Globulin, Blood 3.7 g/dL (2.2-4.0); Total Protein, Blood 6.5 g/dL (6.4-8.2)
[2021-11-02 04:40] LABS: Hematocrit 35.8 % (37.0-53.0); Hemoglobin 11.6 g/dL (13.5-17.5); Mean Corpuscular HGB 29.1 pg (26.0-34.0); Mean Corpuscular HGB Conc 32.4 g/dL (31.5-36.5); Mean Corpuscular Volume 90 fL (80-100); Mean Platelet Volume 10.6 fL (9.1-12.4); Platelet Count 368 K/mm3 (150-400); RDW Coefficient Variation 14.4 % (11.7-14.2); RDW Standard Deviation 46.9 fL (35.1-46.3); Red Blood Cell Count 3.99 M/mm3 (4.30-5.90); White Blood Cell Count 11.06 K/mm3 (4.00-11.30)
--- NOTE | 2021-11-02 05:25 | NUR ---
SHIFT SUMMARY PT HAD ONE EPISODE WHERE HE STARTED YELLING IN HIS ROOM. WHEN ENTERING HIS ROOM PT REPORTED THAT HE WAS HAVING SEVERE PAIN IN HIS RECTUM. PT ALSO REPORTED THAT THIS WAS THE SAME PAIN HE HAD DURING THE DAY BEFORE HE HAD HIS BOWEL MOVEMENTS. PT UP TO [facility] [place]. HAD A LARGE FORMED BROWN BM. PT HAD REPORTED PAIN TO RECTUM PRIOR TO BOWEL MOVEMENT BUT MOST SEVERELY DURING THE BM. PAIN IMPROVED AFTER BM. MEDICATED X 1. AFTER BM PT SLEPT WELL THE REST OF THE NIGHT. REQUESTED TO LEAVE ARM SLING OFF THIS EVENING BUT KEPT ARM BENT ON CHEST AND SUPPORTED WITH HIS SHEET. VERDE CATHETER REMAINS IN PLACE. VITAL SIGNS STABLE. WILL CONTINUE TO MONITOR.
[2021-11-02] MEDS ORDERED: DOCU100 PO (09:22)
[2021-11-02] MEDS ORDERED: BISA10S PR (09:22)
[2021-11-02] MEDS ORDERED: MIRALAX17 GM PO (09:23)
== END 2021-11-02 12:49 | disposition home or self-care (01) | DRG 389 ==
LOC: ER 12:36 → MEDS 18:29
PROVIDERS: Internal Medicine; Physician Assistant; ADMIT Internal Medicine
DX: K56.41 Fecal impaction (principal); N13.8 Other obstructive and reflux uropathy; N17.9 Acute kidney failure, unspecified; J44.9 Chronic obstructive pulmonary disease, unspecified; E11.65 Type 2 diabetes mellitus with hyperglycemia; D72.829 Elevated white blood cell count, unspecified; E78.5 Hyperlipidemia, unspecified; N40.0 Benign prostatic hyperplasia without lower urinary tract symptoms; E11.9 Type 2 diabetes mellitus without complications; K21.9 Gastro-esophageal reflux disease without esophagitis; Z79.899 Other long term (current) drug therapy; Z79.4 Long term (current) use of insulin; Z88.8 Allergy status to other drugs, medicaments and biological substances; N40.1 Benign prostatic hyperplasia with lower urinary tract symptoms; R33.8 Other retention of urine
CPT/HCPCS: 36415; 51702; 51798; 74176; 80053; 81003; 82947; 83605; 83690; 85025; 85027; 96361; 96372; 96372-59; 96374-59; 96375; 96376; 97161; 97530; 99285-25; A9270; G0378; J0696; J1650; J1815; J3010; J7030

== ENCOUNTER 2023-04-02 09:19 | Day surgery (SDC) | payer OTHER ==
[~2023-04-02] VITALS: Ht 165.1 cm; Wt 59.3 kg
[~2023-04-02 09:19] MED LIST changes: +BISA10S PR; +DOCU100 PO; +GABA300 PO; -GABA400 PO; +HYDR1TAB94 PO; +LOSA25 PO; -LOSA50 PO; +MIRALAX17 GM PO; +NORT10 PO; -NORTRIPTYLINE H PO
[2023-04-02] MEDS ORDERED: ASPI81CH PO (09:39)
[2023-04-02] MEDS ORDERED: ATOR40TA (09:40)
--- NOTE | 2023-04-02 09:55 | NUR ---
04/02/23 0955 Brissa Chappell TETRACAINE IN AT 0939 PLEGETT IN AT 0941 CALL LIGHT AT BEDSIDE
[2023-04-02 10:45] VITALS: BP 160/61
--- NOTE | 2023-04-02 11:05 | NUR ---
04/02/23 1104 Estevan Huerta IV REMOVED INTACT. SITE WNL.
[2023-04-03] MEDS ORDERED: Norco 5-325 Ta1 EACH (14:45)
== END 2023-04-02 11:02 | disposition home or self-care (01) ==
LOC: ORSCSDS 09:19
PROVIDERS: Student in an Organized Health Care Education/Training Program
PROC: 08RK3JZ Replacement of Left Lens with Synthetic Substitute, Percutaneous Approach (ICD-10-PCS; principal; 2023-04-02 10:30)
DX: E11.36 Type 2 diabetes mellitus with diabetic cataract (principal); K21.9 Gastro-esophageal reflux disease without esophagitis; I10 Essential (primary) hypertension; Z86.73 Personal history of transient ischemic attack (TIA), and cerebral infarction without residual deficits; Z79.4 Long term (current) use of insulin; Z79.899 Other long term (current) drug therapy
CPT/HCPCS: 82947; J2001; J2250; J3010; J7040; V2632

== ENCOUNTER 2023-04-16 08:58 | Day surgery (SDC) | payer OTHER ==
[~2023-04-16 08:58] MED LIST changes: +ASPI81CH PO; +ATOR40TA; +Norco 5-325 Ta1 EACH
--- NOTE | 2023-04-16 09:41 | NUR ---
04/16/23 0941 Carlos Elena CALL LIGHT WITHIN REACH. LUZ IN AT 0935 IN RIGHT EYE
--- NOTE | 2023-04-16 11:27 | NUR ---
04/16/23 1127 MARY ALICE LOUISE PT C/O PAIN TO OD 5/10, SCRATCHY. DR. RUFF ORDERED ERYTHROMYCIN OPTH. TID PRN FOR DISCOMFORT. MED APPLIED TO OD. PT WILL BE GIVEN TYLENOL 1000MG PO NOW WELL.
[2023-04-16 11:28] VITALS: BP 160/59
== END 2023-04-16 11:50 | disposition home or self-care (01) ==
LOC: ORSCSDS 08:58
PROVIDERS: Student in an Organized Health Care Education/Training Program
PROC: 08RJ3JZ Replacement of Right Lens with Synthetic Substitute, Percutaneous Approach (ICD-10-PCS; principal; 2023-04-16 10:30)
DX: E11.36 Type 2 diabetes mellitus with diabetic cataract (principal); H25.11 Age-related nuclear cataract, right eye; Z96.1 Presence of intraocular lens; Z86.73 Personal history of transient ischemic attack (TIA), and cerebral infarction without residual deficits; I10 Essential (primary) hypertension; K21.9 Gastro-esophageal reflux disease without esophagitis; Z79.84 Long term (current) use of oral hypoglycemic drugs; Z79.899 Other long term (current) drug therapy; Z79.4 Long term (current) use of insulin
CPT/HCPCS: 82947; A9270; J2250; J3010; J7040; V2632